=== PATIENT | female | born 1930 | race Caucasian/White ===

== ENCOUNTER 2017-12-28 21:01 | Emergency (ER) | payer OTHER, MEDICAID ==
[~2017-12-28] VITALS: Ht 147.3 cm; Wt 43.1 kg
[2017-12-28 21:12] VITALS: BP 151/90
[2017-12-29] MEDS ORDERED: KETOROLAC 60 MG/2 ML VIAL IM ONE (01:40)
[2017-12-29 02:00] VITALS: BP 133/74
== END 2017-12-29 02:00 | disposition home or self-care (01) ==
LOC: MED 21:01
DX: S00.03XA Contusion of scalp, initial encounter (principal); R42 Dizziness and giddiness; I10 Essential (primary) hypertension; E11.9 Type 2 diabetes mellitus without complications; W18.39XA Other fall on same level, initial encounter; Y93.89 Activity, other specified; Y99.8 Other external cause status; Y92.89 Other specified places as the place of occurrence of the external cause
CPT/HCPCS: 70450; 96372; 99284; J1885